=== PATIENT | female | born 1990 | race Caucasian/White ===

== ENCOUNTER 2017-01-06 09:23 | Emergency (ER) | payer SELFPAY ==
[~2017-01-06 09:23] MED LIST: BIRTH CONTROL PILL PO; KEFLEX PO; NORTREL PO
== END 2017-01-06 09:54 | disposition home or self-care (01) ==
LOC: SED 09:23
DX: S01.511A Laceration without foreign body of lip, initial encounter (principal); S01.512A Laceration without foreign body of oral cavity, initial encounter; Z23 Encounter for immunization; W22.8XXA Striking against or struck by other objects, initial encounter; Y92.009 Unspecified place in unspecified non-institutional (private) residence as the place of occurrence of the external cause
CPT/HCPCS: 12011; 12051; 90471; 90715; 99283

== ENCOUNTER 2017-02-11 14:57 | Emergency (ER) | payer OTHER ==
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
== END 2017-02-11 16:00 | disposition home or self-care (01) ==
LOC: SED 14:57
DX: S16.1XXA Strain of muscle, fascia and tendon at neck level, initial encounter (principal); R51 Headache; V43.52XA Car driver injured in collision with other type car in traffic accident, initial encounter
CPT/HCPCS: 70450; 72125; 84703; 99284